=== PATIENT | male | born 1955 | race Caucasian/White ===

== ENCOUNTER 2023-11-22 07:42 | Outpatient (CLI) | payer MEDICARE, OTHER, SELFPAY ==
--- NOTE | ~2023-11-22 | XR_ITS ---
Clinical Indication: Preoperative clearance PA and lateral views of the chest: Comparison: None Findings: The lungs are clear, without evidence of focal consolidation or pleural effusion. Cardiome diastinal silhouette is within normal limits. Bilateral shoulder arthroplasties noted. Impression: Clear lungs. Reviewed, dictated and finalized at location . Impression: Clear lungs.
--- NOTE | 2023-11-22 08:13 | ECG_ITS ---
Test Date: 2023-11-22 08:30:44 Measurements Intervals [place] Rate: 64 P: -90 WI: 114 QRS: -11 QRSD: 92 T: 27 QT: 386 QTc: 401 Interpretive Statements ECTOPIC ATRIAL RHYTHM NONSPECIFIC T-WAVE ABNORMALITY- INFERIOR LEADS BASELINE ARTIFACT- I, II, AVR, AVL ABNORMAL ECG No previous ECG available for comparison Electronically Signed On 11-22-2023 10:35:13 CDT by Jhon Haynes D.O.
[2023-11-22 08:26] LABS: Hemoglobin A1C 5.6 % (<5.7)
[2023-11-22 09:04] LABS: Anion Gap 8 mmol/L (4-12); Blood Urea Nitrogen 13 mg/dL (7-18); Calcium 9.5 mg/dL (8.5-10.1); Carbon Dioxide 31 mmol/L (21-32); Chloride 97 mmol/L (98-108); Estimated Glomerular Filt Rate > 60; Glucose 124 mg/dL (70-99); Osmolality Calculated 283 mOsm/kg (285-295); Potassium 2.9 mmol/L (3.5-5.1); Sodium 136 mmol/L (136-145)
[2023-11-22 09:40] LABS: MRSA (PCR) NOT DETECTED (NOT DETECTE)
== END 2023-11-22 07:43 | disposition home or self-care (01) ==
LOC: CHSLAB 07:52
PROVIDERS: PCP Family Medicine; Visit Provider Family Medicine
DX: Z01.818 Encounter for other preprocedural examination (principal); R73.01 Impaired fasting glucose; R10.9 Unspecified abdominal pain; R94.31 Abnormal electrocardiogram [ECG] [EKG]
CPT/HCPCS: 36415; 71046; 80048; 83036; 87086; 87641; 93005

== ENCOUNTER 2023-12-05 08:01 | Outpatient (CLI) | payer MEDICARE, OTHER, SELFPAY ==
[2023-12-05 09:01] LABS: Albumin Level 4.1 g/dL (3.4-5.0); Anion Gap 9 mmol/L (4-12); Blood Urea Nitrogen 14 mg/dL (7-18); Calcium 9.9 mg/dL (8.5-10.1); Carbon Dioxide 30 mmol/L (21-32); Chloride 98 mmol/L (98-108); Estimated Glomerular Filt Rate > 60; Glucose 125 mg/dL (70-99); Osmolality Calculated 285 mOsm/kg (285-295); Phosphorus 2.8 mg/dL (2.6-4.7); Potassium 3.2 mmol/L (3.5-5.1); Sodium 137 mmol/L (136-145)
== END 2023-12-05 08:02 | disposition home or self-care (01) ==
LOC: CHSLAB 08:12
PROVIDERS: PCP Family Medicine; Visit Provider Family Medicine
DX: E87.6 Hypokalemia (principal)
CPT/HCPCS: 36415; 80069; 83735

== ENCOUNTER 2023-12-15 09:55 | Outpatient (RCR) | payer MEDICARE, OTHER, SELFPAY ==
--- NOTE | 2023-12-15 10:50 | OPREHPOC ---
Outpatient Therapy Plan of Care This is a Multidisciplinary Plan of Care that may contain components documented by all disciplines (PT, OT, and ST.) PT Problem 1 PT Problem #1 Knowledge Deficit PT Goal 1 Goal / Goal Update 1. independent and compliant with HEP Target Visit 6 PT Problem 2 PT Problem #2 Pain PT Goal 1 Goal / Goal Update 1. 2/10 pain or less in the R knee at worst in the last week Target Visit 12 PT Problem 3 PT Problem #3 Impaired Range of Motion PT Goal 1 Goal / Goal Update 1. 0-120 degrees active R knee mobility Target Visit 12 PT Problem 4 PT Problem #4 Impaired Strength PT Goal 1 Goal / Goal Update 1. 5/5 R ankle DF 2. 4+/5 or better R knee strength 3. 4/5 or better R hip flex strength 4. no ext lag with SLR of the R LE Target Visit 12 PT Problem 5 PT Problem #5 Impaired Functional Mobil PT Goal 1 Goal / Goal Update 1. LEFS to display 30% or less functional deficits 2. patient to ambulate with normal gait mechanics and no AD on level surfaces 3. patient to ambulate up and down steps with reciprocal mechanics. 4. patient to return to driving Target Visit 12
--- NOTE | 2023-12-15 10:52 | PTOPEVAL1 ---
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 he reports he was supposed to have it done 6 years ago and kept putting it off. he reports he was having a really hard time getting around prior to surgery. he reports he was not using an AD, but was limping quite significantly. he reports he has been more sore the last day or so since his nerve block wore off. he reports he would like to get back to walking without an AD, and get rid of the pain in the R knee. he reports he would also like to get back to riding his horse and driving himself. Reported Pain Level Pain Score 7: Self Report Assessment PT Clinical Summary mr. guillory is a 68 yo man who presents to skilled PT services for evaluation and treatment following R TKA. he presents with decreased R knee rom, R LE weakness, swelling, pain, and abnormal gait mechanics. he would benefit from continued skilled PT to improve his objective/functional deficits and progress towards a return to his prior level functional activities performance/ quality of life. Plan of Care Interventions Electrical Stimulation,Gait Training,Hot Pack/Cold Pack,Manual Therapy,Neuro Re-education,Patient/ Caregiver Educati,Therapeutic Activities, Therapeutic Exercise PT Services Indicated Yes Treatment Frequency and 3x weekly for 12 visits Duration These treatments will address the objective and functional deficits as defined above. The patient will be advanced safely and appropriately in order for the patient to progress towards his/her prior level of function. Additional exercises will be introduced and as well as a comprehensive home exercise program upon discharge, if needed, ?to ensure carryover of functional gains achieved in the clinic. This treatment plan has been reviewed and agreement upon by the patient.
--- NOTE | 2024-01-06 09:06 | OPREHPOC ---
Outpatient Therapy Plan of Care This is a Multidisciplinary Plan of Care that may contain components documented by all disciplines (PT, OT, and ST.) PT Problem 1 PT Problem #1 Knowledge Deficit PT Goal 1 Goal / Goal Update 1. independent and compliant with HEP Target Visit 6 Progress Met PT Problem 2 PT Problem #2 Pain PT Goal 1 Goal / Goal Update 1. 2/10 pain or less in the R knee at worst in the last week Target Visit 12 Progress Not Met PT Problem 3 PT Problem #3 Impaired Range of Motion PT Goal 1 Goal / Goal Update 1. 0-120 degrees active R knee mobility. met for flexion Target Visit 12 Progress Partially Met PT Problem 4 PT Problem #4 Impaired Strength PT Goal 1 Goal / Goal Update 1. 5/5 R ankle DF 2. 4+/5 or better R knee strength 3. 4/5 or better R hip flex strength 4. no ext lag with SLR of the R LE Target Visit 12 PT Problem 5 PT Problem #5 Impaired Functional Mobil PT Goal 1 Goal / Goal Update 1. LEFS to display 30% or less functional deficits 2. patient to ambulate with normal gait mechanics and no AD on level surfaces 3. patient to ambulate up and down steps with reciprocal mechanics. 4. patient to return to driving. met Target Visit 12 Progress Partially Met
--- NOTE | 2024-01-06 09:06 | PTOPPROG ---
Assessment and note entered by JT File, PT Evaluation Information Assessment Status Progress Diagnosis R TKA ICD-10 Condition Codes (PT) Z47.89,Z47.1 Onset 12/13/23 Subjective Information patient reports he is a bit sore today. 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 however, he reports it general it is getting better. he reports he is back to driving, but is still using the cane to walk. Assessment PT Clinical Summary mr. guillory presents to skilled PT for his 10th skilled PT visit today. he presents with increased pain and antalgia during ambulation today, but this can be explained by his increased activity yesterday. he presents with improved rom and progression of ambulation to a cane at all times. he is also back to driving. he would benefit from continued skilled PT to address his remaining rom, strength, and ambulation deficits to return to his prior level functional activity performance and quality of life. his POC will be extended today to allow for increased time to complete goals. Plan of Care Interventions Electrical Stimulation,Gait Training,Hot Pack/Cold Pack,Manual Therapy,Neuro Re-education,Patient/ Caregiver Educati,Therapeutic Activities, Therapeutic Exercise PT Services Indicated Yes Treatment Frequency and continue skilled PT 3x weekly for 8 more visits Duration from today (18 total). These treatments will address the objective and functional deficits as defined above. The patient will be advanced safely and appropriately in order for the patient to progress towards his/her prior level of function. Additional exercises will be introduced and as well as a comprehensive home exercise program upon discharge, if needed, ?to ensure carryover of functional gains achieved in the clinic. This treatment plan has been reviewed and agreement upon by the patient.
--- NOTE | 2024-02-14 08:52 | OPREHPOC ---
Outpatient Therapy Plan of Care This is a Multidisciplinary Plan of Care that may contain components documented by all disciplines (PT, OT, and ST.) PT Problem 1 PT Problem #1 Knowledge Deficit PT Goal 1 Goal / Goal Update 1. independent and compliant with HEP Target Visit 6 Progress Met PT Problem 2 PT Problem #2 Pain PT Goal 1 Goal / Goal Update 1. 2/10 pain or less in the R knee at worst in the last week Target Visit 12 Progress Met PT Problem 3 PT Problem #3 Impaired Range of Motion PT Goal 1 Goal / Goal Update 1. 0-120 degrees active R knee mobility. met for flexion Target Visit 12 Progress Partially Met PT Problem 4 PT Problem #4 Impaired Strength PT Goal 1 Goal / Goal Update 1. 5/5 R ankle DF 2. 4+/5 or better R knee strength 3. 4/5 or better R hip flex strength 4. no ext lag with SLR of the R LE Target Visit 12 Progress Met PT Problem 5 PT Problem #5 Impaired Functional Mobil PT Goal 1 Goal / Goal Update 1. LEFS to display 30% or less functional deficits . met 2. patient to ambulate with normal gait mechanics and no AD on level surfaces. met 3. patient to ambulate up and down steps with reciprocal mechanics. met 4. patient to return to driving. met Target Visit 12 Progress Met
--- NOTE | 2024-02-14 08:52 | PTOPDC ---
Assessment and note entered by JT File, PT Evaluation Information Assessment Status Discharge Diagnosis R TKA ICD-10 Condition Codes (PT) Z47.89,Z47.1 Onset 12/13/23 Subjective Information patient reports the R knee feels good today. he reports he has no pain in the R knee. he reports like normal it will get a little stiff when sitting too long. he reports he does not return to the [facility] until late February. Reported Pain Level Pain Score 0: Self Report Assessment PT Clinical Summary mr. guillory presents to skilled PT for his 18th skilled PT visit post op R TKA. he presents today with 0-120 degrees passive R knee rom, normal gait mechanics, and full strength of the R knee. he has achieved all goals for skilled PT today. he is compliant with his HEP at home. he will DC skilled PT today, and was educated communicate with PT or surgeon if any set backs occur. Plan of Care PT Services Indicated Yes
== END 2024-02-14 09:57 | disposition home or self-care (01) ==
LOC: CHSPT 09:55
DX: M17.11 Unilateral primary osteoarthritis, right knee (principal); Z47.1 Aftercare following joint replacement surgery
CPT/HCPCS: 97016; 97110; 97161; 97530